=== PATIENT | female | born 2000 | race Caucasian/White ===

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

== ENCOUNTER → 2022-01-12 | Outpatient (CLI) | payer BC, OTHER ==
--- NOTE | 2022-01-12 09:32 | NM ---
EXAMINATION TYPE: NM hepatobiliary w EF DATE OF EXAM: 01/12/2022 COMPARISON: Ultrasound gallbladder 12/15/2021 HISTORY: Right upper quadrant pain TECHNIQUE: After the intravenous administration of 3.4 mCi Tc 99m Mebrofenin hepatobiliary scintigrap hy is performed. Immediate images post injection. FINDINGS: There is satisfactory initial accumulation of tracer by the liver. The gallbladder is visualized wit hin 4 minutes. The small bowel activity is noted within 26 minutes. At one hour 8 ounces of oral en sure plus is given to mimic CCK and gallbladder ejection fraction is calculated at 65 %, in the jose luis l range. Therefore there is no scintigraphic evidence of cystic or common bile duct obstruction to s uggest acute cholecystitis or gallbladder dyskinesia. IMPRESSION: Exam is within normal limits.
== END | disposition home or self-care (01) ==
LOC: RADNMMAIN 06:53
PROVIDERS: ATTEND Family Medicine
DX: R10.11 Right upper quadrant pain (principal)
CPT/HCPCS: 78226; A9537

== ENCOUNTER → 2022-03-02 | Outpatient (CLI) | payer BC, OTHER ==
--- NOTE | 2022-03-02 15:35 | CT ---
EXAMINATION TYPE: CT angio chest DATE OF EXAM: 03/02/2022 COMPARISON: Chest x-ray November 10, 2021 HISTORY: Shortness of breath for [address] DLP: 140.90 mGycm. Automated Exposure Control for Dose Reduction was Utilized. CONTRAST: CTA scan of the thorax is performed with IV Contrast, patient injected with 100, wasted 47 mL of Isov ue 300, pulmonary embolism protocol. MIP Images are created on CT scanner and reviewed. FINDINGS: LUNGS: The lungs are grossly clear, there is no concerning parenchymal mass or nodule identified. No suspicious focal consolidation. No significant fibrotic change. There is no pleural effusion or pneu mothorax seen. The tracheobronchial tree is patent. MEDIASTINUM: Suboptimal study with most dense contrast in SVC. There is near equal contrast in the ao rta without aneurysm or dissection. Main pulmonary artery axial image 46 is larger in diameter versus adjacent thoracic aorta. There is some heterogeneity but no convincing CT evidence for acute pulmona ry embolism. There are no greater than 1 cm hilar or mediastinal lymph nodes. No cardiomegaly or pe ricardial effusion is seen. OTHER: No additional significant abnormality is seen. IMPRESSION: Suboptimal study without acute pulmonary embolism. No suspicious acute or chronic pulmona ry parenchymal process is seen. Prominent main pulmonary artery noted.
== END | disposition home or self-care (01) ==
LOC: RADCTMAIN 14:40
PROVIDERS: ATTEND Family Medicine
DX: R06.02 Shortness of breath (principal)
CPT/HCPCS: 71275; Q9967

== ENCOUNTER 2022-04-14 11:36 | Day surgery (SDC) | payer BC, OTHER ==
[2022-04-12 16:02] VITALS: BMI 24.7
[~2022-04-14 11:36] MED LIST: SODIUM CHLORIDE 0.9% 1,000 ML IV SCH
[2022-04-14 12:05] VITALS: RESP 16; TEMP 98
[2022-04-14] MEDS ORDERED: SODIUM CHLORIDE 0.9% 500 ML 500 ML IV ONE (12:12)
--- NOTE | 2022-04-14 14:26 | P.EPPROC ---
- EP Procedure Note Electrophysiology Procedure Note: Diagnosis Recurrent syncope Twelve-lead EKG Sinus rhythm normal OH narrow QRS normal ST segments with early repolarization abnormality Tilt table test for protocol Baseline blood pressure 125/70 mmHg, Baseline heart rate 71 beats a minute Patient was tilted upright at an angle of 70 per protocol After about 6-8 minutes was in abrupt drop in blood pressure. She felt dizzy and lightheaded and sweaty and was near syncopal This is preceded by sinus tachycardia When she was laid supine heart rate and blood pressure normalized Impression Normal 20 EKG Neurocardiogenic response to upright tilting
[2022-04-14 15:41] VITALS: BP 131/68; PULSE 72
== END 2022-04-14 14:33 | disposition home or self-care (01) ==
LOC: CATHEP 11:36
PROVIDERS: ATTEND Internal Medicine Clinical Cardiac Electrophysiology
DX: R55 Syncope and collapse (principal); R00.0 Tachycardia, unspecified
CPT/HCPCS: 81025; 87635; 93660

== ENCOUNTER 2023-11-28 14:20 | Outpatient (CLI) | payer BC, OTHER ==
[2023-11-28 15:12] VITALS: BP 118/56; PULSE 96; RESP 17; TEMP 98.5
--- NOTE | 2023-12-08 10:03 | P.MSEPDOC ---
Presenting Problems - Arrival Data Date of Arrival on Unit: 11/28/23 Time of Arrival on Unit: 14:20 Mode of Transport: Ambulatory - Complaint OB-Reason for Admission/Chief Complaint: Pain Comment: pt presents to triage for cramping that has been gettin worse since last night Medical History - Information : 2 Para: 0 Term: 0 : 0 Abortions: Spontaneous or Elective: 0 Number of Living Children: 0 - Gestational Age Gestational Age by SALIMA (wks/days): 19 Weeks and 2 Days Review of Systems - Review of Systems Constitutional: No problems Breast: No problems ENT: No problems Cardiovascular: No problems Respiratory: No problems Gastrointestinal: No problems Genitourinary: No problems Musculoskeletal: No problems Neurological: No problems Skin: No problems Vital Signs - Temperature Temperature: 98.5 F Temperature Source: Temporal Artery Scan - Pulse Right Brachial Pulse Rate: 96 Pulse Assessment Method: Automatic Cuff - Respirations Respiratory Rate: 17 Oxygen Delivery Method: Room Air - Blood Pressure Right Arm Blood Pressure: 118/56 Blood Pressure Mean: 76 Blood Pressure Source: Automatic Cuff Medical Screen Scoring - Cervical Exam Dilation (cm): 0 Membranes: Intact - Assessment - Baby A Baseline FHR: 145 Heart Rate - NICHD Category: Category I (Normal) Physician Notification - Notification Comment Comment: dopplered heart tones for 145-155, abd soft to palpation, cervical exam closed/thick/high, pt discharged home and has appt scheduled in office 2-15 Maternal Triage Index - Maternal Triage Index Presenting for scheduled procedure w/no complaint: No - Stat/Priority 1 Stat Priority 1: No - Urgent/Priority 2 Urgent Priority 2: Yes Provider Notified: Mariah Haines Provider Notified Time: 14:43 Criteria Met for Priority 2: pt presents to triage for cramping that has been gettin worse since last night Disposition - Disposition OB Disposition: Triage, Written follow up instructions reviewed Discharge Date: 11/28/23 Discharge Time: 14:55 I agree with the RN Medical Screening Exam: Yes Case reviewed; plan agreed upon as documented in EMR&OBIX.: Yes Diagnosis: RELATED CONDITIONS, UNSPECIFIED, SECOND TRIMESTER
== END 2023-11-28 14:55 | disposition home or self-care (01) ==
LOC: FBPOP 14:20
PROVIDERS: ATTEND Obstetrics & Gynecology Obstetrics
DX: O99.892 Other specified diseases and conditions complicating childbirth (principal); Z3A.19 19 weeks gestation of pregnancy; Z88.0 Allergy status to penicillin; Z88.2 Allergy status to sulfonamides
CPT/HCPCS: 99213

== ENCOUNTER 2024-01-06 20:00 | Outpatient (CLI) | payer BC, OTHER ==
[2024-01-06 20:32] LABS: Appearance,Urine Clear (Clear); Bilirubin,Urine Negative (Negative); Color,Urine Colorless; Glucose,Urine (UA) Negative (Negative); Ketones,Urine Negative (Negative); Protein,Urine Negative (Negative); Specific Gravity,Urine 1.002 (1.001-1.035)
[2024-01-06 20:33] LABS: Blood,Urine Negative (Negative); Leukocyte Esterase,Urine Negative (Negative); Nitrite,Urine Negative (Negative); Urobilinogen,Urine 0.2 mg/dL (<2.0)
[2024-01-06] MEDS: ACETAMINOPHEN TAB 500 MG TAB PO STA (20:46)
[2024-01-06 22:16] VITALS: BP 124/71; PULSE 95; RESP 16; TEMP 96.4
--- NOTE | 2024-02-05 10:30 | P.MSEPDOC ---
Presenting Problems - Arrival Data Date of Arrival on Unit: 01/06/24 Time of Arrival on Unit: 20:00 Mode of Transport: Ambulatory - Complaint OB-Reason for Admission/Chief Complaint: Pain Comment: pt. present to triage due to Left flank pain that started around 5pm today, pt. reatin 8/10 sharp constant pain that comes in waves pt. states some more worse then others. Medical History - Information : 1 Para: 0 Term: 0 : 0 Abortions: Spontaneous or Elective: 0 Number of Living Children: 0 - Gestational Age Gestational Age by SALIMA (wks/days): 24 Weeks and 6 Days Review of Systems - Review of Systems Constitutional: No problems Breast: No problems ENT: No problems Cardiovascular: No problems Respiratory: No problems Gastrointestinal: No problems Genitourinary: No problems Musculoskeletal: No problems Neurological: No problems Skin: No problems Vital Signs - Temperature Temperature: 96.4 F Temperature Source: Temporal Artery Scan - Pulse Pulse Oximetery Pulse Rate: 95 Pulse Assessment Method: Automatic Cuff - Respirations Respiratory Rate: 16 Oxygen Delivery Method: Room Air O2 Sat by Pulse Oximetry: 99 - Blood Pressure Right Arm Blood Pressure: 124/71 Blood Pressure Mean: 88 Blood Pressure Source: Automatic Cuff Medical Screen Scoring - Assessment - Baby A Baseline FHR: 145 Heart Rate - NICHD Category: Category I (Normal) Physician Notification - Physician Notified Physician Notified Date: 01/06/24 Physician Notified Time: 20:40 Physician: Shabnam Linares Order Received: Yes - Notification Comment Comment: urine reviewed, orders to strain urine and give 1000mg of tylenol PO, a nd oral hydrate, and heat packs, pt. requesting to go home for pain management orders to discharge home Maternal Triage Index - Maternal Triage Index Presenting for scheduled procedure w/no complaint: No - Stat/Priority 1 Stat Priority 1: No - Urgent/Priority 2 Urgent Priority 2: No - Prompt/Priority 3 Prompt Priority 3: No - Non-Urgent/Priority 4 Non-Urgent Priority 4: Yes Criteria Met for Priority 4: pt. present to triage due to Left flank pain that started around 5pm today, pt. reatin 8/10 sharp constant pain that comes in waves pt. states some more worse then others. Disposition - Disposition OB Disposition: Discharge to home Discharge Date: 01/06/24 Discharge Time: 21:55 I agree with the RN Medical Screening Exam: Yes Physician's MSE Comment: I have neither seen nor examined the patient Case reviewed; plan agreed upon as documented in EMR&OBIX.: Yes Diagnosis: MATERNAL CARE FOR PROBLEM, UNSP, SECOND * DO NOT USE *
== END 2024-01-06 21:55 | disposition home or self-care (01) ==
LOC: FBPOP 20:00
PROVIDERS: ATTEND Obstetrics & Gynecology
DX: O26.892 Other specified pregnancy related conditions, second trimester (principal); R10.9 Unspecified abdominal pain; Z3A.24 24 weeks gestation of pregnancy; Z88.0 Allergy status to penicillin; Z88.2 Allergy status to sulfonamides
CPT/HCPCS: 81003; 99214

== ENCOUNTER 2024-02-08 14:51 | Outpatient (CLI) | payer BC, OTHER ==
[2024-02-08 16:13] VITALS: BP 146/77; PULSE 114; RESP 17; TEMP 97.9
--- NOTE | 2024-03-18 09:11 | P.MSEPDOC ---
Presenting Problems - Arrival Data Date of Arrival on Unit: 02/08/24 Time of Arrival on Unit: 14:51 Mode of Transport: Ambulatory - Complaint OB-Reason for Admission/Chief Complaint: Decreased Movement Comment: pt presents to triage for nto feeling any movement since last night Medical History - Information : 1 Para: 0 Term: 0 : 0 Abortions: Spontaneous or Elective: 0 Number of Living Children: 0 - Gestational Age Gestational Age by SALIMA (wks/days): 29 Weeks and 4 Days Review of Systems - Review of Systems Constitutional: No problems Breast: No problems ENT: No problems Cardiovascular: No problems Respiratory: No problems Gastrointestinal: No problems Genitourinary: No problems Musculoskeletal: No problems Neurological: No problems Skin: No problems Vital Signs - Temperature Temperature: 97.9 F Temperature Source: Temporal Artery Scan - Pulse Right Brachial Pulse Rate: 114 Pulse Assessment Method: Automatic Cuff - Respirations Respiratory Rate: 17 Oxygen Delivery Method: Room Air O2 Sat by Pulse Oximetry: 98 - Blood Pressure Right Arm Blood Pressure: 146/77 Blood Pressure Mean: 100 Blood Pressure Source: Automatic Cuff Medical Screen Scoring - Assessment - Baby A Baseline FHR: 135 Heart Rate - NICHD Category: Category I (Normal) NST: Reactive Physician Notification - Notification Comment Comment: reactive nst, positive movement felt while in triage, pt discharged home Maternal Triage Index - Maternal Triage Index Presenting for scheduled procedure w/no complaint: No - Stat/Priority 1 Stat Priority 1: No - Urgent/Priority 2 Urgent Priority 2: Yes Provider Notified: Mariah Haines Provider Notified Time: 15:22 Criteria Met for Priority 2: pt presents to triage for nto feeling any movement since last night Disposition - Disposition OB Disposition: Triage, Discharge to home, Written follow up instructions reviewed Discharge Date: 02/08/24 Discharge Time: 15:30 I agree with the RN Medical Screening Exam: Yes Case reviewed; plan agreed upon as documented in EMR&OBIX.: Yes Diagnosis: DECREASED MOVEMENTS, THIRD TRIMESTER, FETUS 1
== END 2024-02-08 15:30 | disposition home or self-care (01) ==
LOC: FBPOP 14:51
PROVIDERS: ATTEND Obstetrics & Gynecology Obstetrics
DX: O36.8131 Decreased fetal movements, third trimester, fetus 1 (principal); Z3A.29 29 weeks gestation of pregnancy; Z88.0 Allergy status to penicillin; Z88.2 Allergy status to sulfonamides
CPT/HCPCS: 59025; 99213

== ENCOUNTER 2024-03-22 01:16 | Outpatient (CLI) | payer BC, OTHER ==
[2024-03-22 02:20] LABS: Appearance,Urine Clear (Clear); Bilirubin,Urine Negative (Negative); Blood,Urine Negative (Negative); Color,Urine Colorless; Glucose,Urine (UA) Negative (Negative); Ketones,Urine Negative (Negative); Leukocyte Esterase,Urine Negative (Negative); Nitrite,Urine Negative (Negative); PH, Urine 6.5 (5.0-8.0); Protein,Urine Negative (Negative); Specific Gravity,Urine 1.008 (1.001-1.035); Urobilinogen,Urine <2.0 mg/dL (<2.0)
[2024-03-22 02:47] VITALS: BP 115/71; PULSE 112; RESP 16; TEMP 97.6
--- NOTE | 2024-03-30 12:33 | P.MSEPDOC ---
Presenting Problems - Arrival Data Date of Arrival on Unit: 03/22/24 Time of Arrival on Unit: 01:16 Mode of Transport: Ambulatory - Complaint OB-Reason for Admission/Chief Complaint: Other Comment: Pt presents to triage with complaints of right upper back/ flank pain rating 6/10 [id number]. Pt states that she was laying in bed when she started feeling this pain. States that she felt as though she was having some cramping in that area all day but that it has gotten worse. Pain will have waves of sharp/stabbing pain but describes constant feeling of pressure Medical History - Information : 1 Para: 0 Term: 0 : 0 Abortions: Spontaneous or Elective: 0 Number of Living Children: 0 - Gestational Age Gestational Age by SALIMA (wks/days): 35 Weeks and 5 Days Review of Systems - Review of Systems Constitutional: No problems Breast: No problems ENT: No problems Cardiovascular: No problems Respiratory: No problems Gastrointestinal: No problems Genitourinary: No problems Musculoskeletal: No problems Neurological: No problems Skin: No problems Vital Signs - Temperature Temperature: 97.6 F Temperature Source: Temporal Artery Scan - Pulse Pulse Oximetery Pulse Rate: 112 Pulse Assessment Method: Pulse Oximetry - Respirations Respiratory Rate: 16 Oxygen Delivery Method: Room Air O2 Sat by Pulse Oximetry: 97 - Blood Pressure Right Arm Blood Pressure: 115/71 Blood Pressure Mean: 85 Blood Pressure Source: Automatic Cuff Medical Screen Scoring - Uterine Contractions Intensity: Absent Resting: Soft to palpation - Assessment - Baby A Baseline FHR: 125 Heart Rate - NICHD Category: Category I (Normal) NST: Reactive Physician Notification - Physician Notified Physician Notified Date: 03/22/24 Physician Notified Time: 02:28 Physician: Alisha Newby New Order Received: Yes - Notification Comment Comment: Dr. Newby called at home, notified of pt complaints of right sided back/flank pain, GA, G/P, FHT CAT1, NST reactive, no contractions but irritability noted per toco, abdomen soft to palpation, not contractions palpated, vs reviewed and UA results reviewed. Dr. Newby states complaints sound musculoskeletal, suggests pt use Tylenol, rotate ice and heat. Dr. Newby gives orders to discharge home with Ante- discharge teaching. Maternal Triage Index - Maternal Triage Index Presenting for scheduled procedure w/no complaint: No - Stat/Priority 1 Stat Priority 1: No - Urgent/Priority 2 Urgent Priority 2: No - Prompt/Priority 3 Prompt Priority 3: No - Non-Urgent/Priority 4 Non-Urgent Priority 4: Yes Criteria Met for Priority 4: Pt presents to triage with complaints of right upper back/ flank pain rating 6/10 [id number]. Pt states that she was laying in bed when she started feeling this pain. States that she felt as though she was having some cramping in that area all day but that it has gotten worse. Pain will have waves of sharp/stabbing pain but describes constant feeling of pressure Disposition - Disposition OB Disposition: Discharge to home Discharge Date: 03/22/24 Discharge Time: 02:29 I agree with the RN Medical Screening Exam: Yes Case reviewed; plan agreed upon as documented in EMR&OBIX.: Yes Diagnosis: PAIN, UNSPECIFIED
== END 2024-03-22 02:29 | disposition home or self-care (01) ==
LOC: FBPOP 01:16
PROVIDERS: ATTEND Obstetrics & Gynecology
DX: O26.893 Other specified pregnancy related conditions, third trimester (principal); R10.9 Unspecified abdominal pain; M54.89 Other dorsalgia; R25.2 Cramp and spasm; Z3A.35 35 weeks gestation of pregnancy; Z88.0 Allergy status to penicillin; Z88.2 Allergy status to sulfonamides
CPT/HCPCS: 59025; 81003; 99213

== ENCOUNTER 2024-04-15 13:07 | Inpatient (IN) | payer BC, OTHER ==
[2024-04-15] MEDS ORDERED: TERBUTALINE 1 MG/ML VIAL SQ PRN (14:04)
[2024-04-15] MEDS ORDERED: METHYLERGONOVINE 0.2 MG/ML 1 ML AMP IM PRN (14:04)
[2024-04-15] MEDS ORDERED: OXYTOCIN 10 UNIT/ML 1 ML VIAL IM PRN (14:04)
[2024-04-15] MEDS ORDERED: CARBOPROST TROMETHAMINE 250 MCG/ML 1 ML AMP IM PRN (14:04)
[2024-04-15] MEDS ORDERED: miSOPROStoL 200 MCG TAB PO PRN (14:04)
[2024-04-15] MEDS ORDERED: TRANEXAMIC 1,000 MG/100ML-NACL 1,000 MG in EMPTY BAG 1 BAG IV PRN (14:04)
[2024-04-15] MEDS: LACTATED RINGERS 1,000 ML IV SCH (14:15)
[2024-04-15] MEDS: OXYTOCIN 30 UNITS/500 ML NS 30 UNIT in SALINE 1 500ML.BAG IV SCH ×2 (14:25→22:48)
[2024-04-15 14:28] LABS: Basophils % (A) 0 %; Eosinophils # (A) 0.1 k/uL (0-0.7); Eosinophils % (A) 1 %; HCT 36.6 % (34.0-46.0); HGB 12.5 gm/dL (11.4-16.0); Lymphocytes # (A) 1.9 k/uL (1.0-4.8); Lymphocytes % (A) 17 %; MCH 29.3 pg (25.0-35.0); MCHC 34.1 g/dL (31.0-37.0); MCV 85.9 fL (80.0-100.0); Mean Platelet Volume 10.2; Monocytes # (A) 0.7 k/uL (0-1.0); Monocytes % (A) 6 %; Neutrophils # (A) 8.7 k/uL (1.3-7.7); Neutrophils % (A) 75 %; Platelet Count 178 k/uL (150-450); RBC 4.26 m/uL (3.80-5.40); RDW 13.1 % (11.5-15.5); WBC 11.7 k/uL (3.8-10.6)
[2024-04-15] MEDS: NALBUPHINE 10 MG/ML (10 ML MDV) IV PRN (18:38)
--- NOTE | 2024-04-15 19:31 | P.HPOB ---
History of Present Illness H&P Date: 04/15/24 Chief Complaint: IUP at 39 weeks, spontaneous rupture of membranes 23-year-old G2, P0 at 39 weeks of that presents with complaints of spontaneous rupture of membranes this morning. Patient noted a large gush of fluid this morning. Patient states fluid was clear. Patient has been receiving routine care that has been essentially uncomplicated. Upon presentation patient denied contractions, vaginal bleeding she did note good movement. blood work Blood type of a positive, rubella status immune, RPR nonreactive, hepatitis B surface engine negative, HIV negative grew beta strep culture negative. Review of Systems Constitutional: Denies chills, Denies fatigue, Denies fever Cardiovascular: Reports leg edema Respiratory: Denies dyspnea Gastrointestinal: Denies constipation, Denies diarrhea, Denies nausea, Denies vomiting Genitourinary: Reports Past Medical History Past Medical History: Asthma Additional Past Medical History / Comment(s): irregular heart beat OCCASIONAL RAPID HEARTBEAT AT TIMES, MIGRAINE HEADACHES. POTS History of Any Multi-Drug Resistant Organisms: None Reported Past Surgical History: No Surgical Hx Reported Additional Past Surgical History / Comment(s): BMT - A CHILD Past Anesthesia/Blood Transfusion Reactions: No Reported Reaction Past Psychological History: Anxiety, Depression Smoking Status: Never smoker Past Alcohol Use History: None Reported Past Drug Use History: None Reported - Past Family History Mother Family Medical History: No Reported History Medications and Allergies Home Medications Medication Instructions Recorded Confirmed Type Vit No.179/Iron/Folic 1 each PO DAILY 11/28/23 04/15/24 History [ Tablet] Allergies Allergy/AdvReac Type Severity Reaction Status Date / Time Penicillins Allergy HIVES Verified 04/15/24 13:18 Sulfa (Sulfonamide Allergy HIVES Verified 04/15/24 13:18 Antibiotics) Exam Osteopathic Statement: *. No significant issues noted on an osteopathic structural exam other than those noted in the History and Physical/Consult. Vital Signs Temp Pulse Resp BP 04/15/24 13:18 96.8 F L 110 H 17 122/71 Intake and Output 04/15/24 04/15/24 04/15/24 06:59 14:59 22:59 Other: Weight 77.111 kg Targeted physical exam is performed this date General is well-nourished well- developed female in active labor, breathing is nonlabored, heart has a regular rhythm, abdomen is gravid, on cervical exam she is 4/80/-2 station vertex presentation membrane is palpated and clear fluid was obtained on amniotomy. heart tones are noted to be category 1 and she is olga every 2 minutes. Results Result Diagrams: 04/15/24 14:15 Abnormal Lab Results - Last 24 Hours (Table) 04/15/24 Range/Units 14:15 WBC 11.7 H (3.8-10.6) k/uL Neutrophils # 8.7 H (1.3-7.7) k/uL Assessment and Plan (1) Term Current Visit: Yes Status: Acute Code(s): Z34.90 - ENCNTR FOR SUPRVSN OF NORMAL , UNSP, UNSP TRIMESTER SNOMED Code(s): 43667287 (2) Spontaneous rupture of membranes Current Visit: Yes Status: Acute Code(s): [id number] - SNOMED Code(s): 645394413 Plan: 23-year-old G2, P0 at 39 weeks of that presented with complaints of spontaneous rupture of membranes. Patient is admitted to labor and delivery after AmniSure was positive. Pitocin augmentation of labor was begun this afternoon, per hospital protocol. Options for analgesia are discussed patient did receive Nubain prior to my arrival, she is considering epidural.
[2024-04-15] MEDS ORDERED: ROPIVACAINE 5 MG/ML 30 ML VIAL ONE (19:35)
[2024-04-15] MEDS ORDERED: SODIUM CHLORIDE 0.9% 250 ML BAG ONE (19:35)
[2024-04-15] MEDS ORDERED: fentaNYL (PF) 50 MCG/ML 5 ML AMP ONE (19:35)
[2024-04-15] MEDS ORDERED: ACETAMINOPHEN TAB 325 MG TAB PO PRN (22:23)
[2024-04-15] MEDS ORDERED: SIMETHICONE 80 MG CHEWABLE PO PRN (22:23)
[2024-04-15] MEDS ORDERED: BENZOCAINE/MENTHOL SPRAY 1 GM/SPRAY AEROSOL TOPICAL PRN (22:23)
[2024-04-15] MEDS ORDERED: HYDROCORTISONE 2.5% RECTAL CREAM 30 GM TUBE RECTAL PRN (22:23)
[2024-04-15] MEDS ORDERED: LANOLIN CREAM 1 GM TUBE TOPICAL PRN (22:23)
[2024-04-15] MEDS ORDERED: diphenhydrAMINE 25 MG CAP PO PRN (22:23)
[2024-04-15] MEDS ORDERED: diphenhydrAMINE 50 MG/ML 1 ML VIAL IVP PRN ×2 (22:23)
[2024-04-15] MEDS ORDERED: ZOLPIDEM 5 MG TAB PO PRN (22:23)
[2024-04-15] MEDS ORDERED: diphenhydrAMINE 50 MG CAP PO PRN (22:23)
--- NOTE | 2024-04-15 22:27 | P.PROBDLV ---
Vaginal Delivery Note - . Vaginal Delivery Note: 23-year-old presents at 39 weeks with spontaneous rupture membranes at noon today. When she presented to the hospital she is olga irregularly and heart tones were category 1. Her cervix was 4 cm dilated, 80% effaced, -1 station. Eventually Pitocin augmentation was started and when she was uncomfortable around 7:00 she did get an epidural. Her cervix was completely dilated by 2034. She pushed, delivered a viable male over intact perineum under epidural anesthesia at 2208. Head delivered OA, anterior shoulder delivered gentle downward guidance followed by posterior shoulder and rest of body. Nose and mouth bulb suctioned, cord clamped and cut, infant placed on mother's abdomen. Apgars 9, 9, weight 8 pounds 2.3 ounces. Placenta delivered spontaneously, intact with three-vessel cord at 2210. Vagina, cervix, perineum inspected. First-degree right labial laceration was repaired with 3-0 Vicryl. Estimated blood loss 200 mL. Mother and baby in stable condition.
[2024-04-15] MEDS: LIDOCAINE 0.5% (PF) 5 MG/ML (50 ML SDV) SQ PRN (23:13)
[2024-04-16 00:35] VITALS: RESP 16
[2024-04-16 07:59] LABS: Basophils % (A) 0 %; Eosinophils # (A) 0.1 k/uL (0-0.7); Eosinophils % (A) 0 %; HCT 33.2 % (34.0-46.0); Lymphocytes % (A) 13 %; MCH 28.7 pg (25.0-35.0); MCHC 33.2 g/dL (31.0-37.0); MCV 86.5 fL (80.0-100.0); Monocytes # (A) 0.8 k/uL (0-1.0); Monocytes % (A) 6 %; Neutrophils # (A) 11.6 k/uL (1.3-7.7); Neutrophils % (A) 79 %; Platelet Count 183 k/uL (150-450); RBC 3.83 m/uL (3.80-5.40); WBC 14.8 k/uL (3.8-10.6)
[2024-04-16] MEDS: IBUPROFEN 600 MG TAB PO PRN (08:05)
[2024-04-16] MEDS: SENNOSIDES-DOCUSATE SODIUM 1 EACH TAB PO SCH (08:06)
--- NOTE | 2024-04-16 12:55 | P.PNOBGVD ---
Subjective - Subjective Principal diagnosis: day #1 Interval history: Patient is feeling well. She is ambulating and voiding without difficulty. She is breast-feeding with some difficulty, is in to see the patient. Lochia is minimal. Pain is well-controlled. Patient reports: Reports appetite normal, Reports voiding normally, Reports pain well controlled, Reports ambulating normally [place]: doing well, nursing well Objective - Latest Vital Signs Latest vital signs: Vital Signs Temp Pulse Resp BP 04/16/24 08:00 98.7 F 87 16 108/67 04/16/24 05:15 98.5 F 90 16 105/64 04/16/24 01:15 97.9 F 92 16 119/67 04/16/24 00:16 88 16 119/64 04/16/24 00:01 90 16 114/67 04/15/24 23:46 96 16 102/58 04/15/24 23:31 76 16 126/59 04/15/24 23:16 97 16 120/55 04/15/24 23:01 76 16 114/57 04/15/24 22:46 98.2 F 94 16 113/55 04/15/24 22:31 86 16 123/53 04/15/24 22:16 90 16 126/61 04/15/24 13:18 96.8 F L 110 H 17 122/71 Intake and Output 04/15/24 04/16/24 04/16/24 22:59 06:59 14:59 Output Total 200 230 Balance -200 -230 Output: Estimated Blood Loss 200 Output, Quantitative 230 Blood Loss Other: # Voids 1 - Exam Extremities: Present: normal, edema Abdomen: Present: normal appearance, soft Uterus: Present: normal, firm - Labs Labs: Abnormal Lab Results - Last 24 Hours (Table) 04/15/24 04/16/24 Range/Units 14:15 07:25 WBC 11.7 H 14.8 H (3.8-10.6) k/uL Hgb 11.0 L (11.4-16.0) gm/dL Hct 33.2 L (34.0-46.0) % Neutrophils # 8.7 H 11.6 H (1.3-7.7) k/uL Assessment and Plan (1) Term Current Visit: Yes Status: Acute Code(s): Z34.90 - ENCNTR FOR SUPRVSN OF NORMAL , UNSP, UNSP TRIMESTER SNOMED Code(s): 69882887 (2) Spontaneous rupture of membranes Current Visit: Yes Status: Acute Code(s): [id number] - SNOMED Code(s): 848685728 (3) Status post vaginal delivery Current Visit: Yes Status: Acute Code(s): ELF2921 - SNOMED Code(s): 577058282 (4) Obstetrical laceration, first degree Current Visit: Yes Status: Acute Code(s): O70.0 - FIRST DEGREE PERINEAL LACERATION DURING DELIVERY SNOMED Code(s): 27856829 Plan: Patient is doing well. Encourage increase ambulation, continue routine care. Anticipate discharge home tomorrow.
--- NOTE | 2024-04-17 05:29 | P.DS ---
Providers Date of admission: 04/15/24 13:51 Expected date of discharge: 04/17/24 Attending physician: Mariah Haines Primary care physician: Stated None - Discharge Diagnosis(es) (1) Term Current Visit: Yes Status: Acute (2) Spontaneous rupture of membranes Current Visit: Yes Status: Acute (3) Status post vaginal delivery Current Visit: Yes Status: Acute (4) Obstetrical laceration, first degree Current Visit: Yes Status: Acute Hospital Course: 23-year-old G2 now P1011 that presented to labor and delivery on 04/15 with complaints of spontaneous rupture of membranes. Patient had been receiving routine care which had been essentially uncomplicated. Patient was admitted and her cervix was noted to be 4 cm dilated. Pitocin augmentation of labor was begun and she did request epidural around 7 PM. Patient was noted to be completely dilated by 2034, with excellent maternal effort she had a normal spontaneous vaginal delivery of a viable male at 221, weight of 8 pounds 2.3 ounces. She did sustain a first-degree vaginal laceration that was repaired in the usual fashion. Patient's course has been uneventful. In this day #2 she is ambulating and voiding without difficulty. She is tolerating a regular diet without nausea or vomiting. States her pain is well- controlled. She denies concerns. Patient Condition at Discharge: Good Plan - Discharge Summary New Discharge Prescriptions: No Action Vit No.179/Iron/Folic [ Tablet] 1 each PO DAILY Discharge Medication List Vit No.179/Iron/Folic [ Tablet] 1 each PO DAILY 11/28/23 [History] Follow up Appointment(s)/Referral(s): Mariah Haines DO [Doctor of Osteopathic Medicine] - 05/30/24 2:15 pm Patient Instructions/Handouts: Vaginal Delivery (GEN), Vaginal Delivery (DC) Activity/Diet/Wound Care/Special Instructions: No intercourse, or tub baths. Call with any fever, shakes or chills, with any pain not alleviated by over the counter meds, or with any quesions or concerns. [id number] ibuprofen 600 mg or 3 tablets every 6 hours as needed for pain. Discharge Disposition: HOME SELF-CARE
[2024-04-17 08:27] VITALS: BP 109/68; PULSE 91; TEMP 98.1
== END 2024-04-17 13:43 | disposition home or self-care (01) | DRG 807 ==
LOC: FBPOP 13:07 → 4FBP 13:51
PROVIDERS: ADMIT Obstetrics & Gynecology Obstetrics; ATTEND Obstetrics & Gynecology Obstetrics
PROC: 10E0XZZ Delivery of Products of Conception, External Approach (ICD-10-PCS; principal; 2024-04-15)
PROC: 0HQ9XZZ Repair Perineum Skin, External Approach (ICD-10-PCS; 2024-04-15)
PROC: 3E033VJ Introduction of Other Hormone into Peripheral Vein, Percutaneous Approach (ICD-10-PCS; 2024-04-15)
DX: O99.354 Diseases of the nervous system complicating childbirth (principal); Z37.0 Single live birth; Z88.0 Allergy status to penicillin; Z88.2 Allergy status to sulfonamides; F32.A Depression, unspecified; F41.9 Anxiety disorder, unspecified; G90.A Postural orthostatic tachycardia syndrome [POTS]; J45.909 Unspecified asthma, uncomplicated; O70.0 First degree perineal laceration during delivery; G43.909 Migraine, unspecified, not intractable, without status migrainosus; O99.344 Other mental disorders complicating childbirth; O99.52 Diseases of the respiratory system complicating childbirth; Z3A.39 39 weeks gestation of pregnancy
CPT/HCPCS: 59025; 84112; 85025; 86850; 86900; 86901; 99213

== ENCOUNTER 2025-02-10 10:33 | Outpatient (CLI) | payer BC, OTHER ==
[2025-02-10 11:26] LABS: Appearance,Urine Clear (Clear); Bilirubin,Urine Negative (Negative); Blood,Urine Negative (Negative); Color,Urine Colorless; Glucose,Urine (UA) Negative (Negative); Ketones,Urine Negative (Negative); Leukocyte Esterase,Urine Negative (Negative); Nitrite,Urine Negative (Negative); Protein,Urine Negative (Negative); Urobilinogen,Urine <2.0 mg/dL (<2.0)
[2025-02-10 12:03] VITALS: BP 109/61; PULSE 96; RESP 16; TEMP 97.4
--- NOTE | 2025-03-06 09:39 | P.MSEPDOC ---
Presenting Problems - Arrival Data Date of Arrival on Unit: 02/10/25 Time of Arrival on Unit: 10:33 Mode of Transport: Wheelchair - Complaint OB-Reason for Admission/Chief Complaint: Pain Comment: Pt presents to triage for complaints of cramping that started last night around 9pm that comes and goes. denies feeling abdomen tighten. Also C/O feeling short of breath. Pt states history 1 vag delivery without complications 10 months ago and also has POTS syndrome. Medical History - Information : 2 Para: 1 Term: 1 : 0 Abortions: Spontaneous or Elective: 0 Number of Living Children: 1 - Gestational Age Gestational Age by SALIMA (wks/days): 22 Weeks and 5 Days - History Comment: Pt states baby is measuring small Review of Systems - Review of Systems Constitutional: No problems Breast: No problems ENT: No problems Cardiovascular: No problems Respiratory: No problems Gastrointestinal: No problems Genitourinary: No problems Musculoskeletal: No problems Neurological: No problems Skin: No problems Vital Signs - Temperature Temperature: 97.4 F Temperature Source: Temporal Artery Scan - Pulse Right Pulse Rate: 96 Pulse Assessment Method: Pulse Oximetry - Respirations Respiratory Rate: 16 Oxygen Delivery Method: Room Air O2 Sat by Pulse Oximetry: 99 - Blood Pressure Right Arm Blood Pressure: 109/61 Blood Pressure Mean: 77 Blood Pressure Source: Automatic Cuff Medical Screen Scoring - Cervical Exam Dilation (cm): 0 Effacement (%): 0 Station: -4 Membranes: Intact - Uterine Contractions Frequency From (mins): 0 Frequency To (mins): 0 Duration From (seconds): 0 Duration To (seconds): 0 - Assessment - Baby A Baseline FHR: 140 Physician Notification - Physician Notified Physician Notified Date: 02/10/25 Physician Notified Time: 11:35 Physician: Mariah Haines New Order Received: Yes - Notification Comment Comment: Dr Haines notified her pt prior vag delivery 10 months ago 22weeks 5 days here for cramping pains that come and go since 9pm last night and mild shortness of breath. no ctx per toco or palpation. Dop FHT 140s. UA sent and reviewed negative. Lungs CTA no sings resp distress VSS. Pt marking 20 second "pains" without a regular pattern. Abd soft non tender to palpation. Order to check cervix and if closed pt may discharge, take plain tylenol for cramping pains, keep appt 5/5. Cervix closed thick and high Maternal Triage Index - Maternal Triage Index Presenting for scheduled procedure w/no complaint: No - Stat/Priority 1 Stat Priority 1: No - Urgent/Priority 2 Urgent Priority 2: No - Prompt/Priority 3 Prompt Priority 3: No - Non-Urgent/Priority 4 Non-Urgent Priority 4: Yes Criteria Met for Priority 4: cramping 22 weeks Disposition - Disposition OB Disposition: Discharge to home Discharge Date: 02/10/25 Discharge Time: 11:55 I agree with the RN Medical Screening Exam: Yes Case reviewed; plan agreed upon as documented in EMR&OBIX.: Yes Diagnosis: RELATED CONDITIONS, UNSPECIFIED, SECOND TRIMESTER
== END 2025-02-10 11:55 | disposition home or self-care (01) ==
LOC: FBPOP 10:33
PROVIDERS: ATTEND Obstetrics & Gynecology Obstetrics
DX: O26.892 Other specified pregnancy related conditions, second trimester (principal); R52 Pain, unspecified; Z3A.22 22 weeks gestation of pregnancy; Z88.0 Allergy status to penicillin; Z88.2 Allergy status to sulfonamides
CPT/HCPCS: 81003; 99213

== ENCOUNTER 2025-02-14 09:09 | Outpatient (CLI) | payer BC, OTHER ==
[2025-02-14 11:05] LABS: Appearance,Urine Clear (Clear); Bilirubin,Urine Negative (Negative); Blood,Urine Negative (Negative); Color,Urine Colorless; Glucose,Urine (UA) Negative (Negative); Ketones,Urine Negative (Negative); Leukocyte Esterase,Urine Negative (Negative); Nitrite,Urine Negative (Negative); Protein,Urine Negative (Negative); Specific Gravity,Urine 1.008 (1.001-1.035); Urobilinogen,Urine <2.0 mg/dL (<2.0)
[2025-02-14 11:28] VITALS: BP 108/57; PULSE 99; RESP 15; TEMP 96
--- NOTE | 2025-03-06 09:40 | P.MSEPDOC ---
Presenting Problems - Arrival Data Date of Arrival on Unit: 02/14/25 Time of Arrival on Unit: 09:09 Mode of Transport: Ambulatory - Complaint OB-Reason for Admission/Chief Complaint: Rule Out SROM Medical History - Information : 2 Para: 1 Term: 1 : 0 Abortions: Spontaneous or Elective: 0 Number of Living Children: 1 - Gestational Age Gestational Age by SALIMA (wks/days): 23 Weeks and 2 Days Review of Systems - Review of Systems Constitutional: No problems Breast: No problems ENT: No problems Cardiovascular: No problems Respiratory: No problems Gastrointestinal: No problems Genitourinary: No problems Musculoskeletal: No problems Neurological: No problems Skin: No problems Vital Signs - Temperature Temperature: 96 F Temperature Source: Temporal Artery Scan - Pulse Pulse Oximetery Pulse Rate: 99 Pulse Assessment Method: Pulse Oximetry - Respirations Respiratory Rate: 15 Oxygen Delivery Method: Room Air O2 Sat by Pulse Oximetry: 99 - Blood Pressure Right Arm Sitting Blood Pressure: 108/57 Blood Pressure Mean: 74 Blood Pressure Source: Automatic Cuff Medical Screen Scoring - Cervical Exam Membranes: Intact Physician Notification - Physician Notified Physician Notified Date: 02/14/25 Physician Notified Time: 09:50 Physician: Mariah Haines New Order Received: Yes - Notification Comment Comment: gest age 23 2/7, r/o srom, negative Amnisure. U/A WNL Maternal Triage Index - Maternal Triage Index Presenting for scheduled procedure w/no complaint: No - Stat/Priority 1 Stat Priority 1: No - Urgent/Priority 2 Urgent Priority 2: Yes Provider Notified: Mariah Haines Provider Notified Time: 09:50 Criteria Met for Priority 2: r/o SROM - Prompt/Priority 3 Prompt Priority 3: No - Non-Urgent/Priority 4 Non-Urgent Priority 4: No Disposition - Disposition OB Disposition: Triage, Discharge to home, Written follow up instructions reviewed Discharge Date: 02/14/25 Discharge Time: 11:19 I agree with the RN Medical Screening Exam: Yes Case reviewed; plan agreed upon as documented in EMR&OBIX.: Yes Diagnosis: RELATED CONDITIONS, UNSPECIFIED, SECOND TRIMESTER
== END 2025-02-14 11:19 | disposition home or self-care (01) ==
LOC: FBPOP 09:09
PROVIDERS: ATTEND Obstetrics & Gynecology Obstetrics
DX: O26.892 Other specified pregnancy related conditions, second trimester (principal); Z3A.23 23 weeks gestation of pregnancy; Z88.0 Allergy status to penicillin; Z88.2 Allergy status to sulfonamides
CPT/HCPCS: 81003; 84112; 99213

== ENCOUNTER 2025-04-05 22:36 | Outpatient (CLI) | payer BC, OTHER ==
[2025-04-05 23:28] VITALS: BP 113/58; PULSE 97; RESP 16; TEMP 96.7
--- NOTE | 2025-04-25 13:32 | P.MSEPDOC ---
Presenting Problems - Arrival Data Date of Arrival on Unit: 04/05/25 Time of Arrival on Unit: 22:36 Mode of Transport: Ambulatory - Complaint OB-Reason for Admission/Chief Complaint: Vaginal Bleeding, Pain Comment: Patient presents to triage with complaints of cramping and bright red vaginal bleeding that occured at 2200. No visible blood on patients undergarments. Patient states no bleeding upon wiping after using the restroom in triage. When asked to discribe the cramping, patient discribes left sided groin pain that is constant. Patient denies leaking fluid, and states she is still feeling baby move. Abdomen is soft and non tender upon palpation. Medical History - Information : 2 Para: 1 Term: 1 : 0 Abortions: Spontaneous or Elective: 0 Number of Living Children: 1 - Gestational Age Gestational Age by SALIMA (wks/days): 30 Weeks and 3 Days Review of Systems - Review of Systems Constitutional: No problems Breast: No problems ENT: No problems Cardiovascular: No problems Respiratory: No problems Gastrointestinal: No problems Genitourinary: No problems Musculoskeletal: No problems Neurological: No problems Skin: No problems Vital Signs - Temperature Temperature: 96.7 F Temperature Source: Temporal Artery Scan - Pulse Pulse Oximetery Pulse Rate: 97 Pulse Assessment Method: Pulse Oximetry - Respirations Respiratory Rate: 16 Oxygen Delivery Method: Room Air O2 Sat by Pulse Oximetry: 99 - Blood Pressure Right Arm Blood Pressure: 113/58 Blood Pressure Mean: 76 Blood Pressure Source: Automatic Cuff Medical Screen Scoring - Cervical Exam Membranes: Intact - Uterine Contractions Intensity: Absent Resting: Soft to palpation - Assessment - Baby A Baseline FHR: 135 Heart Rate - NICHD Category: Category I (Normal) NST: Reactive Physician Notification - Physician Notified Physician Notified Date: 04/05/25 Physician Notified Time: 22:57 Physician: Shabnam Linares Order Received: Yes (Discharge Home) - Notification Comment Comment: Dr. Linares called with report on triage patient. RN reported on patient complaint of bright red vaginal bleeding tonight around 2200 when wiping after urination at home and abdominal cramping. , 30 3/7 GA, stable vitals, reactive NST. RN reported that patient stated no blood was noted upon wiping in the triage bathroom, and non visualized in patient undergarments. When RN aske pt. to describe abdominal cramping she said it is a constant cramping/uncomfortable feeling in the left groin area. Patient also states that she had been walking around all day at [facility]. Dr. Lam orders to be discharged home with instructions for pelvic rest until bleeding subsides and to keep appointment on monday with Dr Doe. Maternal Triage Index - Maternal Triage Index Presenting for scheduled procedure w/no complaint: No - Stat/Priority 1 Stat Priority 1: No - Urgent/Priority 2 Urgent Priority 2: No - Prompt/Priority 3 Prompt Priority 3: Yes Criteria Met for Priority 3: Patient presents to triage with complaints of cramping and bright red vaginal bleeding that occured at 2200. No visible blood on patients undergarments. Patient states no bleeding upon wiping after using the restroom in triage. When asked to discribe the cramping, patient discribes left sided groin pain that is constant. Patient denies leaking fluid, and states she is still feeling baby move. Abdomen is soft and non tender upon palpation. Disposition - Disposition OB Disposition: Discharge to home Discharge Date: 04/05/25 Discharge Time: 23:05 I agree with the RN Medical Screening Exam: Yes Physician's MSE Comment: I have neither seen nor examined the patient Case reviewed; plan agreed upon as documented in EMR&OBIX.: Yes Diagnosis: SPOTTING COMPLICATING , THIRD TRIMESTER
== END 2025-04-05 23:05 | disposition home or self-care (01) ==
LOC: FBPOP 22:36
PROVIDERS: ATTEND Obstetrics & Gynecology
DX: O46.93 Antepartum hemorrhage, unspecified, third trimester (principal); Z3A.30 30 weeks gestation of pregnancy; Z88.0 Allergy status to penicillin; Z88.2 Allergy status to sulfonamides
CPT/HCPCS: 59025; 99213

== ENCOUNTER 2025-04-30 12:18 | Outpatient (CLI) | payer BC, OTHER ==
[2025-04-30 13:37] LABS: Bacteria,Urine Occasional /hpf; Bilirubin,Urine Negative (Negative); Blood,Urine Negative (Negative); Color,Urine Colorless; Glucose,Urine (UA) Negative (Negative); Ketones,Urine Negative (Negative); Leukocyte Esterase,Urine Moderate (Negative); Mucus,Urine Rare /hpf; Nitrite,Urine Negative (Negative); PH, Urine 7.0 (5.0-8.0); Protein,Urine Negative (Negative); RBC,Urine <1 /hpf (0-5); Specific Gravity,Urine 1.008 (1.001-1.035); Squamous Epithelial Cell,Urine 5 /hpf (0-4); Urobilinogen,Urine <2.0 mg/dL (<2.0); WBC,Urine 8 /hpf (0-5)
--- NOTE | 2025-04-30 14:46 | US ---
EXAMINATION TYPE: US OB BPP wo non-stress DATE OF EXAM: 04/30/2025 COMPARISON: NONE CLINICAL INDICATION: Female, 24 years old with history of IUGR; IUGR TECHNIQUE: Transabdominal (TA). Scoring by the load dropper during real-time assessment. FINDINGS: BPP PARAMETERS: PRESENTATION: Vertex LIE: Longitudinal?? HEART RATE: 136 bpm RHYTHM: Normal FÁTIMA: 10.8 cm DIAPHRAGM IMAGED: yes BPP SCORIN. Breathin (1 episode of breathing of 30 second duration in 30 minutes of scanning time) 2. Movement: 2 (at least 3 discrete body movements in 30 minutes) 3. Tone: 2 (1 episode of active flexion/extension of limb) 4. FÁTIMA: 2 (FÁTIMA index > 5cm) [employer] ARCHITECT NOTES: IMPRESSION: TOTAL SCORE: 8 / 8 [facility], , 04/30/2025 2:44 PM
[2025-04-30 16:15] VITALS: BP 110/60; PULSE 107; RESP 16; TEMP 98.3
--- NOTE | 2025-06-06 09:49 | P.MSEPDOC ---
Presenting Problems - Arrival Data Date of Arrival on Unit: 04/30/25 Time of Arrival on Unit: 12:18 Mode of Transport: Ambulatory - Complaint OB-Reason for Admission/Chief Complaint: Headache, Pain Comment: cramping 7 on scale of 0-10 Medical History - Information : 2 Para: 1 Term: 1 : 0 Abortions: Spontaneous or Elective: 0 Number of Living Children: 1 - Gestational Age Gestational Age by SALIMA (wks/days): 34 Weeks and 0 Days Review of Systems - Review of Systems Constitutional: No problems Breast: No problems ENT: No problems Cardiovascular: No problems Respiratory: No problems Gastrointestinal: No problems Genitourinary: No problems Musculoskeletal: No problems Neurological: No problems Skin: No problems Vital Signs - Temperature Temperature: 98.3 F Temperature Source: Temporal Artery Scan - Pulse Right Sitting Pulse Rate: 107 Pulse Assessment Method: Automatic Cuff - Respirations Respiratory Rate: 16 Oxygen Delivery Method: Room Air O2 Sat by Pulse Oximetry: 97 - Blood Pressure Right Arm Blood Pressure: 110/60 Blood Pressure Mean: 76 Blood Pressure Source: Automatic Cuff Medical Screen Scoring - Cervical Exam Membranes: Intact - Uterine Contractions Intensity: Mild Resting: Soft to palpation - Assessment - Baby A Baseline FHR: 140 Heart Rate - NICHD Category: Category I (Normal) NST: Reactive Physician Notification - Physician Notified Physician Notified Date: 04/30/25 Physician Notified Time: 15:51 Physician: Mariah Haines New Order Received: Yes Maternal Triage Index - Non-Urgent/Priority 4 Non-Urgent Priority 4: Yes Criteria Met for Priority 4: reactive nst, occasional contraction on monitor, vitals wnl Disposition - Disposition OB Disposition: Discharge to home Discharge Date: 04/30/25 Discharge Time: 16:04 I agree with the RN Medical Screening Exam: Yes Case reviewed; plan agreed upon as documented in EMR&OBIX.: Yes Diagnosis: FALSE LABOR BEFORE 37 COMPLETED WEEKS OF GEST, THIRD TRI
== END 2025-04-30 16:04 | disposition home or self-care (01) ==
LOC: FBPOP 12:18
PROVIDERS: ATTEND Obstetrics & Gynecology Obstetrics
DX: O47.03 False labor before 37 completed weeks of gestation, third trimester (principal); O36.5930 Maternal care for other known or suspected poor fetal growth, third trimester, not applicable or unspecified; Z3A.34 34 weeks gestation of pregnancy; Z88.0 Allergy status to penicillin; Z88.2 Allergy status to sulfonamides
CPT/HCPCS: 59025; 76819; 81001; 99213